=== PATIENT | female | born 1970 | race Caucasian/White ===

== ENCOUNTER 2024-02-02 15:51 | Outpatient (AMB) | payer OTHER, SELFPAY ==
--- NOTE | 2024-02-02 15:52 | AM.OFFWIN_ITS ---
Intake Vital Signs 02/02/24 15:58 Height 5 ft 5 in Weight 201 lb BMI 33.4 BP 116/80 Blood Pressure Location Lt brachial Position Sitting Pulse 85 Pulse Source Pulse Oximeter Temp 98.1 F Temp Source Oral Pulse Oximetry (%) 98 Oxygen Delivery Method Room Air Intake Visit Reasons: EP-sore throat, ear ache, headaches Intake Note: pt c/o sore throat, ear ache, headaches, stuffy nose . Started last week Patient Tobacco Use Status: Never used Tobacco Allergies No Known Allergies Allergy (Verified 02/02/24 15:53) Do you need a note to return to daycare/school/sports/work: No HPI HPI Comments History of Present Illness Details Patient is a 53-year-old female complaining of 9 days of a cough, sore throat, bilateral ear aches, headaches, stuffy nose. 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 She denies any nausea, vomiting, diarrhea, fevers or shortness of breath. She denies any history of asthma or COPD. She has been taking Sudafed without much relief. [facility] Social History Patient Tobacco Use Status: Never used Tobacco Review of Systems Const All systems reviewed & are unremarkable except as noted in HPI and below Physical Exam Vital Signs: BMI result Body Mass Index 33.4 Const General: cooperative, healthy appearing, comfortable and no acute distress Orientation/consciousness: patient oriented x3 Limitations: no limitations HEENT Head: Yes normal to inspection Ears: hearing grossly normal bilaterally, external ears normal and TM's normal bilaterally General nose exam: Normal external nose present, Normal nares present and No nasal discharge present Face and sinus: Yes normal facial exam and Yes sinuses nontender Mouth: Normal oral and palatal mucosa present and moist mucous membranes Throat: Yes tonsils normal, Yes uvula midline and Yes posterior oropharynx abnormal (Erythema) Eyes General: appearance normal, both eyes and all related structures Neck Neck: Yes normal visual inspection Resp Effort & Inspection: normal respiratory effort, able to speak in complete sentences, Actively coughing, no respiratory distress, not tachypneic, no tripod positioning and no use of accessory muscles Auscultation: clear to auscultation bilaterally Cardio Rate: regular rate Rhythm: regular rhythm Heart sounds: normal S1 and S2 Skin General skin exam: no rashes or lesions noted Neuro General: patient oriented x3 Extrem General: Yes normal to inspection and Yes no clubbing, cyanosis or edema Results AMB Rapid Strep AMB Rapid Strep Positive Last Edit by Cristian Belcher CMA on 02/02/24 16:11 Assessment & Plan Assessment & Plan (1) Strep pharyngitis: Code(s): J02.0 - Streptococcal pharyngitis Plan: Rapid strep in office was positive, sent prescription to pharmacy. Sent flu and COVID RSV as well. Recommended taking the amoxicillin and using [id number] medications for symptomatic relief. Plan See above Orders: Orders SARS-CoV2/FLU/RSV Today J06.9 - Acute upper respiratory infection, unspecified AMB Rapid Strep Screen Today Z13.9 - Encounter for screening, unspecified Medications: New amoxicillin 500 mg PO BID 20 tabs 0RF Coding Level of Care Code New Pt Level 3 (39006) Diagnoses Strep pharyngitis J02.0
[2024-02-02 15:58] VITALS: BP 116/80; PULSE 85; TEMP 36.7; O2SAT 98; BMI 33.4
== END 2024-02-02 16:30 | disposition home or self-care (01) ==
PROVIDERS: Visit Provider Physician Assistant
DX: J02.0 Streptococcal pharyngitis (principal)
CPT/HCPCS: 87880; 99203

== ENCOUNTER 2024-02-02 16:08 | Outpatient (REF) | payer OTHER, SELFPAY ==
[2024-02-03 14:13] LABS: Influenza A PCR NEGATIVE (Negative); Influenza B PCR NEGATIVE (Negative); Resp Syncy Virus RNA Qual PCR NEGATIVE (Negative); SARS COV2 PCR INHOUSE NEGATIVE (Negative)
== END 2024-02-02 16:09 | disposition home or self-care (01) ==
LOC: HO.LAB 16:08
PROVIDERS: Visit Provider Physician Assistant
DX: J06.9 Acute upper respiratory infection, unspecified (principal)
CPT/HCPCS: 0241U

== ENCOUNTER 2024-05-02 16:03 | Outpatient (AMB) | payer OTHER, SELFPAY ==
--- NOTE | 2024-05-02 16:07 | AM.OFFWIN_ITS ---
Intake Vital Signs 05/02/24 16:12 Weight 199 lb BP 122/90 H Blood Pressure Location Rt brachial Position Sitting Pulse 78 Pulse Source Pulse Oximeter Temp 98.5 F Temp Source Temporal Artery Scan Pulse Oximetry (%) 98 Oxygen Delivery Method Room Air Intake Visit Reasons: EP-ears ache, sore throat, stuffy nose Intake Note: Patient here for cough, bilat ear pain and congestion that has been present for about 1 week. Patient Tobacco Use Status: Never used Tobacco Allergies No Known Allergies Allergy (Verified 05/02/24 16:12) Do you need a note to return to daycare/school/sports/work: Yes HPI HPI Comments History of Present Illness Details This is a 53-year-old female with a past medical history of hypothyroidism, anxiety and depression presenting for evaluation of a sore throat, headache, ear pain and cough that has been evolving over the past 10 days. Patient reports subjective fevers and chills for which she has been taking Sudafed, DayQuil and Mucinex. 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 [facility] Social History Patient Tobacco Use Status: Never used Tobacco Review of Systems Const All systems reviewed & are unremarkable except as noted in HPI and below Reports chills and Reports fever(s) (subjective) Eyes Reports no additional complaints ENT Reports no additional complaints, Reports otalgia, Reports sinus pressure and Reports sore throat Card Reports no additional complaints and Denies dyspnea Resp Reports chest congestion, Reports cough and Denies dyspnea GI Reports no additional complaints Reports no additional complaints Musc Reports no additional complaints Skin/Breast Reports system reviewed and no additional complaints, except as documented Neuro Reports no additional complaints Psych Reports no additional complaints Endo Reports no additional complaints Aller/Immun Reports no additional complaints Physical Exam Vital Signs: Last Vital Signs Temp 98.5 F 05/02/24 16:12 Pulse 78 05/02/24 16:12 BP 122/90 H 05/02/24 16:12 Pulse Ox 98 05/02/24 16:12 Oxygen Delivery Method Room Air 05/02/24 16:12 Const General: cooperative, comfortable, no acute distress, well developed, alert, awake and tired appearing Nutritional Appearance: average body habitus Orientation/consciousness: patient oriented x3 Limitations: no limitations HEENT Head: Yes normal to inspection and Yes normocephalic Ears: hearing grossly normal bilaterally, external ears normal, TM's abnormal bilaterally (R. TM bulging with erythema, L. TM bulging with fluid level, no erythema) and EAC's normal General nose exam: Normal external nose present Face and sinus: Yes normal facial exam and Yes sinuses nontender Mouth: Normal oral and palatal mucosa present and moist mucous membranes Throat: Yes posterior oropharynx normal (There is no edema, erythema or exudates of the posterior oropharynx) Eyes General: appearance normal, both eyes and all related structures Neck Lymphatic: no lymphadenopathy noted Resp Effort & Inspection: normal respiratory effort, no audible wheezes, Actively coughing, no respiratory distress and no use of accessory muscles Auscultation: clear to auscultation bilaterally, no rhonchi, no wheezes and lung sounds not diminished Cardio Rate: regular rate Rhythm: regular rhythm Skin General skin exam: no rashes or lesions noted Neuro General: patient oriented x3 Psych Appearance: grossly normal Mental Status: mental status grossly normal Insight: Good insight present (Psych) Judgement: Good judgement present (Psych) Assessment & Plan Assessment & Plan (1) Acute upper respiratory infection: Comment: Patient is afebrile and is not hypoxic. Chest x-ray is deferred at this time. Code(s): J06.9 - Acute upper respiratory infection, unspecified Plan: Continue taking Mucinex with Tylenol or ibuprofen as needed and increase clear fluids daily. (2) Otitis media of right ear: Code(s): H66.91 - Otitis media, unspecified, right ear Qualifiers: Otitis media type: unspecified Qualified Code(s): H66.91 - Otitis media, unspecified, right ear Plan: Amoxicillin 500 mg t.i.d. x7 days. Medications: New amoxicillin 500 mg PO TID 21 caps 0RF Coding Level of Care Code Est Pt Level 3 (73923) Diagnoses Acute upper respiratory infection J06.9 Right otitis media, unspecified otitis media type H66.91 Otitis media type: unspecified Time Spent (min) 20
[2024-05-02 16:12] VITALS: BP 122/90; PULSE 78; TEMP 36.9; O2SAT 98
--- OUTSIDE RECORDS SUMMARY | 2024-05-03 22:26 | XMS_ITS ---
Author Organization [facility] Address [address] [place] [address] Care Team Providers Care Rubber Attacher Name Role Phone HAKEEMLISAGREGORYJUAN M Unavailable [phone] Allergies No Known Allergies Reason For Referral Reason PLEASE EVALUATE AND TREAT Diagnosis 1 Earache (H92.09) Referral Organization [facility] Referring Provider First Name BRITTANY Referring Provider Last Name MEREDITH Erwin Referring Provider Speciality Family Med icine Referred Provider Specialty Family Pract ice Referral Priority Routine Referral Appointment Date 03/12/2024 REASON FOR VISIT RN TO [facility] Prescription Request, Patient requesting service from promotional campaign [employer] Medications Medication SIG (Take, Route, Frequency, Duration) Notes Start Date End Date Status Fluticasone Propionate 50 MCG/ACT 2 spray in each nostril Nasally Once a day for 30 days 03/12/2024 Active buPROPion HCl ER (SR) 200 MG TAKE 1 TABLET BY MOUTH TWICE A DAY Oral for 90 Days Active Amoxicillin 500 MG TAKE 1 CAPSULE BY MOUTH TWICE A DAY Oral for 10 Days Not-Taking Levothyroxine Sodium 50 MCG TAKE 1 TABLET BY MOUTH EVERY DAY Oral for 90 Days Active Rosuvastatin Calcium 5 MG TAKE 1 TABLET BY MOUTH EVERY DAY Oral for 90 Days Active Azithromycin 250 MG 2 STAT then 1 a day Orally daily for 5 days 03/12/2024 Active Social History Tobacco Use: Social History Observation Description Date Details (start date - stop date) Never Smoker NA - NA Tobacco Control (Standard) Question Answer Notes Tobacco use: Nonsmoker Vital Signs Height 66 in 03/12/2024 Weight 180 lbs 03/12/2024 BMI 29.05 kg/m2 03/12/2024 Patient Reported Normal Bloo d PressurePatient Reported High Temperature Encounters Encounter Location Date Provider Diagnosis [facility] [address] [place] [address] 03/12/2024 BRITTANY RICHTER Earache H92.09 Assessments Encounter Date Diagnosis (ICD Code) Assessment Notes Treatment Notes Treatment Clinical Notes Section Notes 03/12/2024 Earache (ICD-10 - H92.09) TREATMENT PLAN Patient presents with symptoms concerning for a congestive or infective process in the ear. Details of tympanoscope evaluation not available given type of medical visit performed. Given the nature of ear symptoms, the etiology often remains broad and requires close examination for definitive diagnosis and treatment. Given the symptoms provided, decision has been made to provide empiric treatment to help reduce congestive or inflammatory process in the ear, but definitive diagnosis will need to be provided in-person. The history is limited to what is provided by the patient in this medical visit. 1. If the symptoms are deemed to meet criteria for infection (ie. drainage, redness, unilateral symptoms, hearing changes, vertigo symptoms, fullness, pain, history of infection, anatomical variations), we can provide empiric antibiotic treatment. Either antibiotic eardrops or oral antibiotics are options, but avoid taking both at the same time as one should be sufficient. If you do take antibiotics, highly consider in-person evaluation within the next week. 2. If the symptoms are related to a congestive process with concomitant nasal/sinus symptoms (drainage, fullness, pain) and/or allergy symptoms (sneezing, itchy eyes, bilateral ear fullness, runny nose, etc), the ideal treatment does not involve focused antibiotic treatment of the ear. The strategy is to reduce the inflammatory burden in the nasopharynx and sinuses. Use anti-allergy medications (zyrtec, jazmin, claritin, xyzal) or flonase 2 puffs per nose daily (if not allergic). We can also consider oral steroids if you meet criteria for steroids to reduce congestive/inflam matory burden in the head. PATIENT EDUCATION: OTITIS MEDIA Overview An ear infection may start with a cold and affect the middle ear (otitis media). It can hurt a lot. Most ear infections clear up on their own in a couple of days and do not need antibiotics. Also, antibiotics do not work against viruses, which may be the cause of your infection. Regular doses of pain relievers are the best way to reduce your fever and help you feel better. Follow-up care is a bhandari part of your treatment and safety. Be sure to make and go to all appointments, and call your doctor if you are having problems. It's also a good idea to know your test results and keep a list of the medicines you take. How can you care for yourself at home? Take pain medicines exactly as directed. If the doctor gave you a prescription medicine for pain, take it as prescribed. If you are not taking a prescription pain medicine, take an qday-eww-xlnuhrw medicine, such as acetaminophen (Tylenol), ibuprofen (Advil, Motrin), or naproxen (Aleve). Read and follow all instructions on the label. Do not take two or more pain medicines at the same time unless the doctor told you to. Many pain medicines have acetaminophen, which is Tylenol. Too much acetaminophen (Tylenol) can be harmful. Plan to take a full dose of pain reliever before bedtime. Getting enough sleep will help you get better. Try a warm, moist washcloth on the ear. It may help relieve pain. If your doctor prescribed antibiotics, take them as directed. Do not stop taking them just because you feel better. You need to take the full course of antibiotics. When should you call for help? Call your doctor now or seek immediate medical care if: You have new or increasing ear pain. You have new or increasing pus or blood draining from your ear. You have a fever with a stiff neck or a severe headache. Watch closely for changes in your health, and be sure to contact your doctor if: You have new or worse symptoms. You are not getting better after taking an antibiotic for 2 days. 03/12/2024 Other Follow the treatment plan as indicated by the provider. Take any medications as prescribed. If you have any questions about your prescription, ask the pharmacist. Call 911 anytime you think you may need emergency care. For example, call if:You have severe trouble breathing.You have a seizure.Call your doctor now or seek immediate medical care if:You have trouble breathing.You have a fever with a stiff neck or a severe headache.You have pain or pressure in your chest or belly.You have a fever or cough that returns after getting better.You feel very sleepy, dizzy, or confused.You are not urinating.You have severe muscle pain.You have severe weakness, or you are unsteady.You have medical conditions that are getting worse.Watch closely for changes in your health, and be sure to contact your doctor if:You do not get better as expected.You are having a problem with your medicine. You participated in a Fasttrack Rx request, considered an asynchronous visit where you provide your symptoms and medical history, and a treatment plan is formulated based on your submission. A treatment plan and patient education were provided based on your submission. If symptoms persist or worsen, you should seek in-person care or call 911 immediately for further evaluation. Plan Of Treatment Medication Medication Name Sig Start Date Stop Date Notes Fluticasone Propionate 50 MCG/ACT 2 spray in each nostril Nasally Once a day for 30 days 03/12/2024 Azithromycin 250 MG 2 STAT then 1 a day Orally daily for 5 days 03/12/2024 Treatment Notes Assessment Notes Earache TREATMENT PLAN Patient presents with symptoms concerning for a congestive or infective process in the ear. Details of tympanoscope evaluation not available given type of medical visit performed. Given the nature of ear symptoms, the etiology often remains broad and requires close examination for definitive diagnosis and treatment. Given the symptoms provided, decision has been made to provide empiric treatment to help reduce congestive or inflammatory process in the ear, but definitive diagnosis will need to be provided in-person. The history is limited to what is provided by the patient in this medical visit. 1. If the symptoms are deemed to meet criteria for infection (ie. drainage, redness, unilateral symptoms, hearing changes, vertigo symptoms, fullness, pain, history of infection, anatomical variations), we can provide empiric antibiotic treatment. Either antibiotic eardrops or oral antibiotics are options, but avoid taking both at the same time as one should be sufficient. If you do take antibiotics, highly consider in-person evaluation within the next week. 2. If the symptoms are related to a congestive process with concomitant nasal/sinus symptoms (drainage, fullness, pain) and/or allergy symptoms (sneezing, itchy eyes, bilateral ear fullness, runny nose, etc), the ideal treatment does not involve focused antibiotic treatment of the ear. The strategy is to reduce the inflammatory burden in the nasopharynx and sinuses. Use anti-allergy medications (zyrtec, jazmin, claritin, xyzal) or flonase 2 puffs per nose daily (if not allergic). We can also consider oral steroids if you meet criteria for steroids to reduce congestive/inflammatory burden in the head. PATIENT EDUCATION: OTITIS MEDIA Overview An ear infection may start with a cold and affect the middle ear (otitis media). It can hurt a lot. Most ear infections clear up on their own in a couple of days and do not need antibiotics. Also, antibiotics do not work against viruses, which may be the cause of your infection. Regular doses of pain relievers are the best way to reduce your fever and help you feel better. Follow-up care is a bhandari part of your treatment and safety. Be sure to make and go to all appointments, and call your doctor if you are having problems. It's also a good idea to know your test results and keep a list of the medicines you take. How can you care for yourself at home? Take pain medicines exactly as directed. If the doctor gave you a prescription medicine for pain, take it as prescribed. If you are not taking a prescription pain medicine, take an jwhv-dmw-qfvpode medicine, such as acetaminophen (Tylenol), ibuprofen (Advil, Motrin), or naproxen (Aleve). Read and follow all instructions on the label. Do not take two or more pain medicines at the same time unless the doctor told you to. Many pain medicines have acetaminophen, which is Tylenol. Too much acetaminophen (Tylenol) can be harmful. Plan to take a full dose of pain reliever before bedtime. Getting enough sleep will help you get better. Try a warm, moist washcloth on the ear. It may help relieve pain. If your doctor prescribed antibiotics, take them as directed. Do not stop taking them just because you feel better. You need to take the full course of antibiotics. When should you call for help? Call your doctor now or seek immediate medical care if: You have new or increasing ear pain. You have new or increasing pus or blood draining from your ear. You have a fever with a stiff neck or a severe headache. Watch closely for changes in your health, and be sure to contact your doctor if: You have new or worse symptoms. You are not getting better after taking an antibiotic for 2 days. Other Follow the treatment plan as indicated by the provider. Take any medications as prescribed. If you have any questions about your prescription, ask the pharmacist. Call 911 anytime you think you may need emergency care. For example, call if:You have severe trouble breathing.You have a seizure.Call your doctor now or seek immediate medical care if:You have trouble breathing.You have a fever with a stiff neck or a severe headache.You have pain or pressure in your chest or belly.You have a fever or cough that returns after getting better.You feel very sleepy, dizzy, or confused.You are not urinating.You have severe muscle pain.You have severe weakness, or you are unsteady.You have medical conditions that are getting worse.Watch closely for changes in your health, and be sure to contact your doctor if:You do not get better as expected.You are having a problem with your medicine. Referrals Referral Date Details 03/12/2024 03/12/2024, PLEASE E VALUATE AND TREAT Next Appt Details Follow Up: PCP, 2-3D, Reason : Progress Notes * KimberlyBillB:1970 ([age] yo F)Acc No.[id number]:03/12/2024 Patient:?Leanna BRICE Provider:?BRITTANY RICHTER MD :1970???Age:53 Y???Sex:Female D ate:03/12/2024 Phone: Address:[address] [place] [id number] Subjective: * Chief Complaints: * ???RN TO FA [facility] Pre scription RequestPatient requesting service from promotional campaign [employer] * HPI: ???TeleHealth Complaint History:?Reason for visit: 53 year-old female, not , presents with earache for a duration of 3 days. Medical History: Thyroid nodule. Medications: Levothyroxine Sodium 50cv Morning. Risk Factors: No emotional stress, no immunocompromised, no recent ear injury, no foreign body in ear, no swimming and no injury of head. * ROS:?All Other Systems:?Review of Systems (ROS)?See HPI for details.?The patient is also suffering from earache (severity moderate and not worsened by mastication), fever (101 ) (duration 1 days), headache (severity moderate, duration 2 days, location frontal region, bilateral, dull, clinical course intermittent, progression staying the same, not timing evening and not awakening from sleep), ear pressure sensation, stuffed-up nose and sputum production. The patient denies the following: ear discharge, difficulty tolerating loud noises, decreased hearing, chills, rash, sore throat, sneezing, nasal obstruction, nasal discharge, cough, facial pain, loss of sense of smell, vomiting, impaired vision, involuntary tears and muscle pain. * Medical History:? * Surgical History:?Denies Pas t Surgical History * Hospitalization/Major Diagno stic Procedure:?Denies Past Hospitalization * Family History:? Patient denies. * Social History:?Tobacco Use:?Tobacco Control (Standard)?Tobacco use:?Nonsmoker.?Drugs/Alcohol:?Do you drink alcohol?: No. * Medications:?TakingbuPROPion HCl ER (SR) 200 MG Tablet Extended Release 12 Hour TAKE 1 TABLET BY MOUTH TWICE A DAY Oral Levothyroxine Sodium 50 MCG Tablet TAKE 1 TABLET BY MOUTH EVERY DAY Oral Rosuvastatin Calcium 5 MG Tablet TAKE 1 TABLET BY MOUTH EVERY DAY Oral Taking buPROPion HCl ER (SR) 200 MG Tablet Extended Release 12 Hour TAKE 1 TABLET BY MOUTH TWICE A DAY Oral Taking Levothyroxine Sodium 50 MCG Tablet TAKE 1 TABLET BY MOUTH EVERY DAY Oral Taking Rosuvastatin Calcium 5 MG Tablet TAKE 1 TABLET BY MOUTH EVERY DAY Oral Not-TakingAmoxicillin 500 MG Capsule TAKE 1 CAPSULE BY MOUTH TWICE A DAY Oral Not-Taking Amoxicillin 500 MG Capsule TAKE 1 CAPSULE BY MOUTH TWICE A DAY Oral * Allergies:?N.K.D.A.no[Allerg ies Verified] Objective: * Vitals:?Ht: 66 in, Wt:180lbs , BMI:29.05Index. Patient Reported Normal Blood Pressure Patient Reported High Temperature. * Physical Examination:?Asynchronous visit, unable to assess. Assessment: * Assessment: 1.?Earache - H92.09 (Primary )??? Plan: * Treatment: 2.?Others? Notes: Follow the treatment plan as indicated by the provider. Take any medications as prescribed. If you have any questions about your prescription, ask the pharmacist. [id number] you think you may need emergency care. For example, call if:You have severe trouble breathing.You have a seizure.Call your doctor nowor seek immediate medical care if:You have trouble breathing.You have a fever with a stiff neck or a severe headache.You have pain or pressure in your chest or belly.You have a fever or cough that returns after getting better.You feel very sleepy, dizzy, or confused.You are not urinating.You have severe muscle pain.You have severe weakness, or you are unsteady.You have medical conditions that are getting worse.Watch closely for changes in your health, and be sure to contact your doctor if:You do not get better as expected.You are having a problem with your medicine.?? Clinical Notes:You participated in a Fasttrack Rx request, considered an asynchronous visit where you provide your symptoms and medical history, and a treatment plan is formulated based on your submission. A treatment plan and patient education were provided based on your submission. If symptoms persist or worsen, you should seek in-person care or call 911 immediately for further evaluation. ?? * Procedure Codes:?KAT PinkyUbersense ant / CC Processing [id number] Office Visit, Est Pt., Level 3, delivered asynchronous, Modifiers: GQ * Follow Up:?PCP, 2-3D * Billing Information: * Visit Code:? S9083 [facility] * Procedure Codes:? [employer]ly[employer]Shola WorkerBee Virtual Assistantst / CC Processing Fee. [id number] Office Visit, Est Pt., Level 3, delivered asynchronous. Modifiers: GQ * Sign off status: Completed true * Provider:?BRITTANY RICHTER MD Da te:?03/12/2024 Generated for Barbara linder/Michael/eTransmitting on:?05/03/2024 10:26 PM EST History and Physical Notes * Physical Examination Category Sub-Category Detail Notes Section Note s Asynchronous vi sit, unable to assess Consultation Request Notes Referral Date Referring Provider Referred Provider Not es 03/12/2024 BRITTANY RICHTER PLEAS E EVALUATE AND TREAT
--- OUTSIDE RECORDS SUMMARY | 2024-05-03 22:27 | XMS_ITS | Patient Health Record ---
Author Organization [facility] Address [address] [place] [address] Care Team Providers Care Cage Tender Name Role Phone MEREDITHYaimaBRITTANY Unavailable Allergies No Known Allergies Reason For Referral Reason PLEASE EVALUATE AND TREAT Diagnosis 1 Earache (H92.09) Referral Organization [facility] Referring Provider First Name BRITTANY Referring Provider Last Name HAKEEMMeenaTIMOTEO Erwin Referring Provider Speciality Family Med icine Referred Provider Specialty Family Pract ice Referral Priority Routine Referral Appointment Date 03/12/2024 Medications Medication SIG (Take, Route, Frequency, Duration) Notes Start Date End Date Status Azithromycin 250 MG 2 STAT then 1 a day Orally daily for 5 days 03/12/2024 Active Fluticasone Propionate 50 MCG/ACT 2 spray in [...] EVERY DAY Oral for 90 Days Active Social History Tobacco Use: Social History Observation Description Date Details (start date - stop date) Never Smoker NA - NA Tobacco Control (Standard) Question Answer Notes Tobacco use: Nonsmoker Vital Signs Height 66 in 03/12/2024 Patient Reported Normal Blood Pressure Patient Reported High Temperature Weight 180 lbs 03/12/2024 Patient Reported Normal Blood Pressure Patient Reported High Temperature BMI 29.05 kg/m2 03/12/2024 Patient Reported Normal Blood Pressure Patient Reported High Temperature Encounters Encounter Location Date Provider Diagnosis [facility] [address] [place] [address] 03/12/2024 BRITTANY RICHTER Earache H92.09 Assessments Encounter [...] taking a prescription pain medicine, take an xixz-rfh-tymmohy medicine, such as acetaminophen (Tylenol), ibuprofen (Advil, [...] immediately for further evaluation. Plan Of Treatment No Information Insurance Providers Payer Name Payer Address Payer Phone Subscriber Number Group Number Insured Name Patient Relationship to Insured Coverage Start Date [place]age [place] Date [id number] [employer] [address] [place] [phone] [id number] Leanna Brice Self - patient is the insured
== END 2024-05-02 16:37 | disposition home or self-care (01) ==
PROVIDERS: Visit Provider Physician Assistant
DX: J06.9 Acute upper respiratory infection, unspecified (principal); H66.91 Otitis media, unspecified, right ear

== ENCOUNTER → 2024-05-02 16:03 | Outpatient (BNVA) | payer OTHER, SELFPAY | PROVIDERS: Visit Provider Physician Assistant ==

== ENCOUNTER 2024-12-04 08:12 | Outpatient (AMB) | payer OTHER, SELFPAY ==
--- OUTSIDE RECORDS SUMMARY | 2024-12-04 08:15 | XMS_ITS | Data Portability ---
Author Organization [place] - [facility], [facility] Address [address] [place] [address] Assessment No assessment recorded. Plan of Treatment Reminders Order Date Submit Date Provider Last Modified By Organization Details Last Modified Time Details Appointments None recorded. Lab urinalysi s, dipstick 2022 023 [place] [facility], [address], [place], [address], 10:18:35 culture, urine 2022 023 [place] [facility], [address] [place] [address], [place], [address], 12:38:09 Referral None recorded. Procedures None recorded. Surgeries None recorded. Imaging None recorded. Medication Orders Macrobid 100 mg capsule 2022 023 [email or web address] [id number], [address] [facility], [place], [address], 09:50:00 Patient TargetsNo targets recorded. Patient Instructions Encounter Date Encounter Id Patient Instructions Last Modified By Organization Details Last Modified Time 07/12/2022 [id number] f/u with pcp in 2 days or immediately if symptoms worsen, ER if severe symptoms, chest pain, shortness of breath or if worse. [email or web address] Not available 07/12/2022 09:12:07 Reason for Referral None Reported. Results Created Date Observation Date Name Description Value Unit Range Abnormal Flag Note LastModifiedBy Organization Detail LastModifiedTime 07/12/19 23 07/18/2022 URINE CULTU RE, ROUTI NE urine culture, routine FINAL REPORT abnormal Not Available [facility] ([facility]) [address], [place], [address], 07/18/2022 12:37:07 07/12/19 23 07/18/2022 URINE CULTU RE, ROUTI NE result 1 ESCHER ICHIA COLI abnormal Cefaz osmani <=4 ug/mL Cefaz osmani with an JOSE DE JESUS <=16 predi cts susce ptibi lity to the oral agent s cefac candace, cefdi luis, cefpo doxim e, cefpr ozil, cefur oxime , cepha lexin , and lorac arbef when used for thera py of uncom plica elena urina ry tract infec tions due to E. coli, Klebs iella pneum oniae , and Prote us mirab ilis. Great er than 100,0 00 colon y formi ng units per mL Not Available [facility] ([facility]) [address], [place], [address], 07/18/2022 12:37:07 07/12/19 23 07/18/2022 URINE CULTU RE, ROUTI NE antimicrobia l susceptibili ty COMMEN T S = Susce ptibl e; I = Inter media te; R = Resis tant P = Posit manny; N = Negat manny MICS are expre ssed in micro grams per mL Antib iotic RSLT# 1 RSLT# 2 RSLT# 3 RSLT# 4 Amoxi cilli n/Cla vulan ic Acid S Ampic illin S Cefep bianca S Ceftr iaxon e S Cefur oxime S Cipro floxa caleb S Ertap enem S Genta micin S Imipe nem S Levof loxac in S Merop enem S Nitro furan toin S Piper acill in/Ta zobac rodriguez S Tetra cycli ne S Tobra mycin S Trime thopr im/Holcomb lfa S Not Available [facility] ([facility]) [address], [place], [address], 07/18/2022 12:37:07 07/12/19 23 07/12/2022 urina lysis , dipst ick Unknown Analyte Yellow Not Available [facility] [address], [place], [address], 07/12/2022 08:59:05 07/12/19 23 07/12/2022 urina lysis , dipst ick Unknown Analyte Clear Not Available 09_ [facility] [address] [place] [address] Rd [address], [place], [address], 07/12/2022 08:59:05 07/12/19 23 07/12/2022 urina lysis , dipst ick Unknown Analyte 250 mg/dL Not Available 09_ [facility] [address], [place], [address], 07/12/2022 08:59:05 07/12/19 23 07/12/2022 urina lysis , dipst ick Unknown Analyte Modera te Not Available 09_ [facility] [address], [place], [address], 07/12/2022 08:59:05 07/12/19 23 07/12/2022 urina lysis , dipst ick Unknown Analyte 15 mg/dL Not Available 09_ [facility] [address], [place], [address], 07/12/2022 08:59:05 07/12/19 23 07/12/2022 urina lysis , dipst ick Unknown Analyte 1.010 Not Available [facility] [address], [place], [address], 07/12/2022 08:59:05 07/12/19 23 07/12/2022 urina lysis , dipst ick Unknown Analyte Modera te Not Available [facility] [address], [place], [address], 07/12/2022 08:59:05 07/12/19 23 07/12/2022 urina lysis , dipst ick Unknown Analyte 8.0 Not Available [facility] [address], [place], [address], 07/12/2022 08:59:05 07/12/19 23 07/12/2022 urina lysis , dipst ick Unknown Analyte 300 mg/dL Not Available [facility] [address], [place], [address], 07/12/2022 08:59:05 07/12/19 23 07/12/2022 urina lysis , dipst ick Unknown Analyte >=8.0 E.U./d L Not Available [facility] [facility] [address], [place], [address], 07/12/2022 08:59:05 07/12/19 23 07/12/2022 urina lysis , dipst ick Unknown Analyte Positi ve Not Available [facility] [place] [facility] [address], [place], [address], 07/12/2022 08:59:05 07/12/19 23 07/12/2022 urina lysis , dipst ick Unknown Analyte Large Not Available [facility] [address], [place], [address], 07/12/2022 08:59:05 Result Notes None recorded. Problems Name Problem SNOMED Code Status Onset Date Resolution Date Notes Provider Name and Address Organization Details Recorded Time Hypothyroidism 14387525 Active 2022 SHIRA conley [place] - [facility] 08:58:44 Acute urinary tract infection 912250467 Active 2022 Leanna Ochoa , [address] [place], [place], [address] , [place] - [facility] 3 09:10:55 Problem Notes None recorded. Medical Equipment None Reported. Allergies No known drug allergies Medications Name Sig Start Date Stop Date Status Note LastModified by Organization Details LastModified Time Macrobid 100 mg capsule Take 1 capsule every 12 hours by oral route for 7 days. 023 active Not Available Not Available Not Avai lable Synthroid active Not Available Not Mary ilable Not Available Vitals Date Recorded Body height Body mass index (BMI) Body weight Respiratory rate Oxygen saturation Oxygen saturation in Arterial blood by Pulse oximetry Heart rate Body temperature Systolic And Diastolic Provider Name and Address Organization Details Last Updated DateTime 3 167.64 cm 29.1 kg/m2 74203.6 3 g 18 /min 98 % 98 % 76 /min 98.3 [degF] 106/62 mm[Hg] SHIRA ACUÑA [place] [employer] [facility] 08:59:27 Social History Question Answer Notes LastModified by [employer] Details LastModified Time Tobacco Smoking Status Never Smoker SHIRA conley [place] - [facility] 07/12/2022 08:58:52 Have You Had Direct Contact, Or Contact During Intimacy, With Monkeypox Rash, Scabs, Or Body Fluids From A Person With Monkeypox? No Information not available 07/12/2022 Have You Recently Traveled Abroad? No Information not available 07/12/2022 Sex: Unknown Functional Status Question Answer Note LastModified by [employer] Details LastModified Time Do you use any illicit or recreational drugs? No Information not available 07/12/2022 Do you or have you ever used any other forms of tobacco or nicotine? No Information not available 07/12/2022 Mental Status None recorded. Family History Nothing Reported. Medical History No medical history recorded. Gynecological HistoryNo gynecological history recorded. Obstetrics History GPAL:G 0 P 0 0 0 0 Past Encounters Encounter ID Performer Location Encounter Start Date Encounter Closed Date Diagnosis/Indication Diagnosis SNOMED-CT Code Diagnosis ICD10 Code Diagnosis Note [id number] [place] [facility] [address] [place] [address] 07/12/2022 08:26:30 07/12/2022 09:53:41 Dysuria 76280963 R30.0 Acute urin dian tract infection 915434129 N39.0 Health Concerns Section Related Observation LastModified by Organization Detai ls LastModified Time None Recorded Concern Status LastModified by Organization Details LastModified Time None Recorded Advance Directives Directive None Recorded Payers Insurance Date Sequence Insurance Name Policy Number Policy Ferris Covered Member ID Ferris Member ID Guarantor Name 07/12/2022 1 [place] Una [id number] 26 Leanna Wally Brice 07/12/2022 1 [place] Leannamaury Brice [id number] Leanna Wally Brice 07/12/2022 1 [place] Leslie Rangelisreal Brice [id number] Leanna Wally Brice Notes Date Note Type Note Provider Name and Address Organization Details Recorded Time 07/12/2022 text/html presents with dysuria, frequency, urgency, similar to previous uti. no fever, no flank pain, mild supra pubic pain. does not recall previous abx rx used [place] [employer] [place], [address], [place] - [facility] 07/12/2022 09:50:13 OBGyn Episode No OBEpisode recorded.
--- OUTSIDE RECORDS SUMMARY | 2024-12-04 08:15 | XMS_ITS | Clinical Summary ---
Author Organization [facility] Address [address] [place] [address] Phone Care Team Providers Care Returned Item Clerk Name Role Phone Physician, No Pcp Primary Care Provider Unavaila ble Allergies No known active allergies Medications levothyroxine (SYNTHROID, LEVOTHROID) 75 mcg tablet Take by mouth 1 (one) time each day before breakfast. Active Active Problems Problem Noted Date Diagnosed Date ASCUS with positive high risk HPV cervical 08/25 Assessment & Plan (08/25/2024 3:54 PM EDT): Patient will be scheduled to come back for colposcopy. Will review past pap records when received. Postmenopausal bleeding 08/02/2024 Assessment & Plan (08/25/2024 3:53 PM EDT): I counseled Leanna that we could either perform EMB, get an US here before an EMB, or have her get records and decide if she needs an EMB. She was open to having the EMB scheduled with her colpo and obtaining her records to bring in in the meantime. Assessment & Plan (08/02/2024 4:28 PM EDT): I counseled the patient that PMB can be secondary to precancer or cancer. This can be evaluated by US and/or endometrial biopsy. If the endometrial lining is 5 mm or greater, an endometrial biopsy is usually performed. If the endometrial lining is 4 mm or less, no biopsy needed unless bleeding continues. I recommended the patient sign MENDOZA and set up follow up visit to review imaging and discuss if EMB is necessary. Obesity 08/02/2024 Overview (08/02/2024): normal 24 hour cortisl\ol Depression 08/02/2024 Gastro-esophageal reflux 08/02/2024 Hypothyroidism 08/02/2024 Microscopic hematuria 08/02/2024 Overview (08/02/2024): neg cysto,cytology Negative CT abdomen and pelvis aside from mild splenomegaly seen 2004 referred ultrasound.cytology saw urology all ok Short SD-normal QRS complex syndrome 08/02/2024 Splenomegaly 08/02/2024 Overview (08/02/2024): Mild splenomegaly seen on CT June 20, 2014 Encounters Date Type Department Care Team Description 10/05/2024 1:30 PM EDT Procedure visit Obstetrics and Gynecology [address] [address] Marian Baker MD ASCUS with positive high risk HPV cervical (Primary Dx); Postmenopausal bleeding from Last 3 Months Surgical History Surgery Date Site/Laterality Comments THYROIDECTOMY, PARTIAL Medical History Medical History Date Comments Thyroid nodule Hypothyroid Family History Medical History Relation Name Comments Breast cancer Neg Hx Colon cancer Neg Hx Ovarian cancer Neg Hx Pancreatic cancer Neg Hx Prostate cancer Neg Hx Uterine cancer Neg Hx Social History Tobacco Use Types Packs/Day Years Used Date Smoking Tobacco: Never Smokeless Tobacco: Never Tobacco Cessation:Counseling Given: Not Answered Alcohol Use Standard Drinks/Week Comments Yes 0 (1 standard drink = 0.6 oz pur e alcohol) social Comments No Sex and Gender Information Value Date Recorded Sex Assigned at Not on file Legal Sex Female 11:38 AM EDT Gender Identity Not on file Sexual Orientation Not on file Obstetrics History Para Term AB IAB SAB Ectopic Multiple Livin g Live Births 3 3 3 0 0 0 0 0 0 3 0 Date Outcome GA Total Labor Labor/2nd/3rd Weight Sex Type Anes PTL Sierra A1 A5 Name Clin Term Vag-Spo nt Term Term M Last Filed Vital Signs Vital Sign Reading Time Taken Comments Blood Pressure 137/88 10/05/2024 1:36 PM EDT Pulse 77 10/05/2024 1:36 PM EDT Temperature - - Respiratory Rate 14 10/05/2024 1:36 PM EDT Oxygen Saturation - - Inhaled Oxygen Concentration - - Weight 90.5 kg (199 lb 9.6 oz) 10/05/2024 1:36 P M EDT Height 167.6 cm (5' 6 ) 08/25/2024 3:43 PM EDT Body Mass Index 32.22 08/25/2024 3:43 PM EDT Plan of Treatment Health Maintenance Due Date Last Done Comments Breast Cancer Screening 1970 Hepatitis B Vaccines (1 of 3 - 19+ 3-dose series) 1988 DTaP,Tdap,and Td Vaccines (2 - Td or Tdap) 05/11/2010 05/11/2000 Pneumococcal Vaccine: 50+ Years (1 of 1 - PCV) 12/20/2019 Zoster Vaccines (1 of 2) 12/20/2019 COVID-19 Vaccine (2023-2 5 season) 2024 Cholesterol Screening (Lipid Panel) 03/07/2024 Colorectal Cancer Screening: Colonoscopy 03/07/2024 Depression Screening 03/07/2024 HIV Screening 03/07/2024 Hepatitis C Screening 03/07/2024 Social Influencers of Health Screening 03/07/2024 Influenza Vaccine (#1) 2025 Cervical Cancer Screening: HPV 08/02/2029 0 08/02/2024, 08/02/2024 HIB Vaccines Aged Out No longer eligi ble based on patient's age to complete this topic HPV Vaccines Aged Out No longer eligi ble based on patient's age to complete this topic Hepatitis A Vaccines Aged Out No long er eligible based on patient's age to complete this topic IPV Vaccines Aged Out No longer eligi ble based on patient's age to complete this topic MMR Vaccines Aged Out No longer eligi ble based on patient's age to complete this topic Meningococcal ACWY Vaccine Aged Out N o longer eligible based on patient's age to complete this topic Meningococcal B Vaccine Aged Out No l onger eligible based on patient's age to complete this topic RSV Immunization Patients Under 20 months Aged Out No longer eligible b ased on patient's age to complete this topic Varicella Vaccines Aged Out No longer eligible based on patient's age to complete this topic Procedures Procedure Name Priority Date/Time Associated Diagnosis Comments TISSUE EXAM Routine 10/05/2024 2:21 PM EDT ASCUS with positive high risk HPV cervical Postmenopausal bleeding HPV WITH REFLEX GENOTYPE Routine 08/02/2024 4:05 PM EDT Screening for cervical cancer from Last 3 Months or Most Recently Relevant to Health Maintenance Results * Tissue exam (10/05/2024 2:21 PM EDT) Final Diagnosis A. Endometrial biopsy: Strips of endometrial surface epithelium No intact endometrial glands and stroma identified B. Endocervical curettings: Scant endocervical glandular epithelium with squamous metaplasia No squamous intraepithelial lesion or glandular neoplasm identified 10/09/2024 1:13 PM EDT [facility] Clinical Information ASCUS with positive high risk HPV cervical R87.610, R87.810 Postmenopausal bleeding N95.0 10/09/2024 1:13 PM EDT [facility] Gross Description A. Endometrium, EMB: Labeled Endo and further designated EMB on the lid. Received in formalin is a 0.3 cm aggregate of red-brown soft tissue fragments which is submitted in toto in a mesh bag in one cassette, multiple pieces, x 2. B. Endocervix, ECC: Labeled endocervix and further designated ECC on the lid. Received in formalin on a brush is a 0.2 cm aggregate of a transparent mucoid substance admixed with minute hernandez-white possible soft tissue fragments. The specimen is submitted in toto in a mesh bag in one cassette, multiple pieces, x 2. Please note: The tissue is minute and may not survive processing. PENNY 10/09/2024 1:13 PM EDT [facility] Disclaimer Unless otherwise specified, all tissue is 10% NB formalin fixed and paraffin embedded. 10/09/2024 1:13 PM T [facility] Tissue Endocervical structure / Unknown Non-blood Collection / Unknown 10/05/2024 2:21 PM EDT 10/05/2024 2:21 PM EDT Tissue specimen (specimen) Endocervical structure / Unknown 10/05/2024 2:21 PM EDT 10/05/2024 2:21 PM EDT Marian Baker MD LAB PATHOLOGY ORDERABLES Fi nal Result Performing Organization Address [facility]/ZIP Co de Phone Number [facility] [address] [place] [address], [place] [phone] * (ABNORMAL) HPV with reflex genotype (08/02/2024 4:05 PM EDT) HPV Positive( A) Negative LAB MICROBIOLOGY METHOD 08/04/2024 3:11 PM EDT [facility] Brushing/Spatula Cervix uteri structure / Unknown 08/02/2024 4:05 PM EDT 08/04/2024 8:00 AM EDT Marian Baker MD LAB MOLECULAR DIAGNOSTICS O RDERABLES Final Result Performing Organization Address [facility] Co de Phone Number [facility] [address] [place] [address], [place] [phone] from Last 3 Months or Most Recently Relevant to Health Maintenance Insurance [employer] Care Teams Returned Item Clerk Relationship Specialty Start Date End Date Physician, No Pcp PCP - General 07/31/24
--- OUTSIDE RECORDS SUMMARY | 2024-12-04 08:15 | XMS_ITS | Patient Health Record ---
Author Organization Yordy Torres MD [place]/ Endocrinology Address [address] [place] [address] Care Team Providers Care Teletype Adjuster Name Role Phone [facility] Primary Care Provider Unavailable Yordy Torres Unavailable [phone] Allergies No Known Allergies Reason For Referral No Information Medications Medication SIG (Take, Route, Fr equency, Duration) Notes Start Date End Date Status Unithroid 50 MCG 1 tablet in the morn ing on an empty stomach Orally Once a day for 90 days Active Wellbutrin SR 100 MG as directed Orally Active Unithroid 50 MCG 1 tablet in the morn ing on an empty stomach Orally Once a day for 90 days Active Social History Tobacco Use: Social History Observation Description Date Details (start date - stop date) Never Smoker NA - NA Tobacco Use/Smoking Question Answer Notes Are you a nonsmoker Alcohol Screen Question Answer Notes Did you have a drink containing alcohol in the p ast year? 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 Problem Non-toxic single thyroid nodule (652561101) Nontoxic single thyroid nodule (E04.1) Active confirmed Problem Non-toxic multinodular goiter (64626249) Nontoxic multinodular goiter (E04.2) Active confirmed Problem Non-toxic nodular goiter (897306277) Other specified nontoxic goiter (E04.8) Active confirmed Problem Non-toxic goiter (183490082) Nontoxic goiter, unspecified (E04.9) Active confirmed Problem Autoimmune thyroiditis (64145293) Autoimmune thyroiditis (E06.3) Active confirmed Problem 39768487 Other iatrogenic hypothyroidism (E03.2) Active confirmed Problem 37498052 Postsurgical hypothyroidism (E89.0) Active confirmed Problem 929809060 Other specified acquired hypothyroidism (E03.8) Active confirmed Plan Of Treatment Pending Test Test Name Order Date T4, FREE 09/10/2021 TSH, 3RD GENERATION 09/10/2021 T4, FREE 07/14/2021 TSH, 3RD GENERATION 07/14/2021 Future Test Test Name Order Date Ultrasound : Biopsy Thyroid 07/15/2020 T4, FREE 07/11/2022 TSH, 3RD GENERATION 07/11/2022 Insurance Providers Payer Name Payer Address Payer Phone Subscriber Number Group Number Insured Name Patient Relationship to Insured Coverage Start Date Coverage End Date [facility] [address] [place] [address] [id number] Leanna Brice Self - patient is the insured Medical (General) History Medical History History ICD Code multinodular goiter obesity depression COVID-19 hematuria Surgical History Surgery Date(Month/Year) hemithyroidectomy 10/2020 Hospitalization History Reason Date(Month/Year) thyroid surgery 10/2020
--- OUTSIDE RECORDS SUMMARY | 2024-12-04 08:15 | XMS_ITS | Patient Health Record ---
Author Organization [facility] Address [address] [place] [address] Care Team Providers Care Mold Tooler Name Role Phone MEREDITHYaimaBRITTANY Unavailable [phone] Allergies No Known Allergies Reason For Referral Reason PLEASE EVALUATE AND TREAT Diagnosis 1 Earache (H92.09) Referral Organization [facility] Referring Provider First Name BRITTANY Referring [...] Temperature Encounters Encounter Location Date Provider Diagnosis [facility] [address] [place] [address] 03/12/2024 BRITTANY RICHTER Earache H92.09 Assessments Encounter [...] taking a prescription pain medicine, take an hakm-vxd-uxrgvua medicine, such as acetaminophen (Tylenol), ibuprofen (Advil, [...] Coverage Start Date Coverage End Date [id number] [employer] [facility] [address] [place] [id number] Leanna rBice Self - patient is the insured
[2024-12-04 08:26] VITALS: BP 124/96; PULSE 80; TEMP 36.7; O2SAT 98; BMI 33.9
--- NOTE | 2024-12-04 08:26 | MHC.OFFWIV ---
Intake Vital Signs 12/04/24 08:26 Height 5 ft 5 in Weight 203 lb 8 oz BMI 33.9 BP 124/96 H Blood Pressure Location Rt brachial Position Sitting Pulse 80 Pulse Source Pulse Oximeter Temp 98.0 F Temp Source Oral Pulse Oximetry (%) 98 Oxygen Delivery Method Room Air Intake Visit Reasons: EP UTI? Intake Note: Patient present with frequency and urgency times 6 days Patient Tobacco Use Status: Never used Tobacco [employer] Required: No Is last menstrual period known: No Post menopausal: Yes Patient : No Allergies No Known Allergies Allergy (Verified 12/04/24 08:36) Do you need a note to return to daycare/school/sports/work: Yes HPI HPI Comments History of Present Illness Details 53 y/o Female patient who presents to the walk in clinic with c/o Urinary frequency and Urgency for 6 days. Reports Symptoms got worse yesterday. Reports lower abdominal cramping and burning, but denies Fevers, chills, nausea or vomiting. [facility] Medical History (Updated 12/04/24 @ 08:54 by Sierra Rao NP) Cystitis Social History Patient Tobacco Use Status: Never used Tobacco Patient : No Review of Systems Const All systems reviewed & are unremarkable except as noted in HPI and below Physical Exam Vital Signs: Last Vital Signs Temp 98.0 F 12/04/24 08:26 Pulse 80 12/04/24 08:26 BP 124/96 H 12/04/24 08:26 Pulse Ox 98 12/04/24 08:26 Oxygen Delivery Method Room Air 12/04/24 08:26 BMI result Body Mass Index 33.9 Const General: no acute distress; No comfortable Nutritional Appearance: obese Orientation/consciousness: patient oriented x3 Resp Effort & Inspection: normal respiratory effort Cardio Heart sounds: S1 normal heart sound present and S2 normal heart sound present GI Inspection: Yes Abdominal panniculus present Palpation (GI): Soft to palpation, not firm, Tenderness to palpation present (GI) suprapubicly, no guarding and not rigid General: Yes no CVA tenderness Back/Spine/Pelvis Back: no CVA tenderness Neuro General: patient oriented x3, gait normal and moves all extremities Psych Speech and movement: Normal speech and movement present Results AMB Urinalysis, Automated UA Leukoctes 125 Elisha/uL Last Edit by Susan Nolen MA on 12/04/24 08:44 UA Nitrite Positive Last Edit by Susan Nolen MA on 12/04/24 08:44 UA Urobilinogen 4 mg/dL Last Edit by Susan Nolen MA on 12/04/24 08:44 UA Protein 15 mg/dL Last Edit by Susan Nolen MA on 12/04/24 08:44 UA pH 5.5 Last Edit by Susan Nolen MA on 12/04/24 08:44 UA Blood 0 Joe/uL Last Edit by Susan Nolen MA on 12/04/24 08:44 UA Specific [place] 1.020 Last Edit by Susan Nolen MA on 12/04/24 08:44 UA Ketone Positive Last Edit by Susan Nolen MA on 12/04/24 08:44 UA Bilirubin 4 mg/dL Last Edit by Susan Nolen MA on 12/04/24 08:44 UA Glucose 0 mg/dL Last Edit by Susan Nolen MA on 12/04/24 08:44 Results Reviewed Results Reviewed: Laboratory Last Values Urine pH (Auto) 5.5 12/04/24 08:41 Specific [place] (Auto) 1.020 12/04/24 08:41 Urine Protein (Auto) 15 mg/dL 12/04/24 08:41 Glucose (UA)(Auto) 0 mg/dL 12/04/24 08:41 Urine Ketones (Auto) Positive 12/04/24 08:41 Urine Blood (Auto) 0 Joe/uL 12/04/24 08:41 Urine Nitrite (Auto) Positive 12/04/24 08:41 Urine Bilirubin (Auto) 4 mg/dL 12/04/24 08:41 Urine Urobilinogen (Auto) 4 mg/dL 12/04/24 08:41 Leukocyte Esterase (Auto) 125 Elisha/uL 12/04/24 08:41 Assessment & Plan Assessment & Plan (1) Cystitis: Code(s): N30.90 - Cystitis, unspecified without hematuria Plan: Urinalysis positive for LEK and NIT Ordered Urine culture Ordered Cefuroxime for 7 days. Orders: Orders AMB Urinalysis Automated Today Z13.9 - Encounter for screening, unspecified Urine Culture Today N30.90 - Cystitis, unspecified without hematuria Medications: New cefuroxime axetil 500 mg PO BID 14 tabs 0RF 7 days N30.90 - Cystitis, unspecified without hematuria Coding Level of Care Code Est Pt Level 4 (36393) Diagnoses Cystitis N30.90 Time Spent (min) 20
== END 2024-12-04 08:55 | disposition home or self-care (01) ==
PROVIDERS: Visit Provider Nurse Practitioner Family
DX: Z13.9 Encounter for screening, unspecified (principal); N30.90 Cystitis, unspecified without hematuria

== ENCOUNTER 2024-12-04 08:12 | Outpatient (REF) | payer OTHER, SELFPAY | END 2024-12-04 08:13 | disposition home or self-care (01) | LOC: HO.LAB 08:12 | PROVIDERS: Visit Provider Nurse Practitioner Family | DX: N30.90 Cystitis, unspecified without hematuria (principal) | CPT/HCPCS: 81003; 87086 ==

== ENCOUNTER 2025-04-06 15:42 | Outpatient (REF) | payer OTHER, SELFPAY ==
[2025-04-07 14:33] LABS: Resp Syncy Virus RNA Qual PCR NEGATIVE (Negative); SARS COV2 PCR INHOUSE POSITIVE (Negative)
== END 2025-04-06 15:43 | disposition home or self-care (01) ==
LOC: HO.LAB 15:42
PROVIDERS: Visit Provider Physician Assistant
DX: R09.89 Other specified symptoms and signs involving the circulatory and respiratory systems (principal); J06.9 Acute upper respiratory infection, unspecified
CPT/HCPCS: 87637

== ENCOUNTER 2025-04-06 15:42 | Outpatient (AMB) | payer OTHER, SELFPAY ==
--- OUTSIDE RECORDS SUMMARY | 2019-03-22 19:00 | XMS_ITS | Continuity of Care Document ---
Author Organization [facility] Address [address] [facility] [address] [place] [address] Phone Care Team Providers Care Tobacco Packing Machine Operator Name Role Phone Tu Mccormack Unavailable Unavailable Advance Directives Directive Yes / No Effective Date File Name No Information Encounters Encounter Description Practice Location Reason(s) For Visit Diagnoses Date Provider Providers Copied on Encounter Tu Mccormack MD PA, [address] [place] [address] [address], [place], [place], [id number], tel:[phone] Tu OSMAN Pain in right hand Ksenia aMe. [address] [facility], [address], [place], [address], [place]. tel:[phone] Family History Family Member Type Diagnosis Age At Onset No Information Payers Payer name Insurance type Covered alliance party ID Authoriza tion(s) No Information Social History Type Description Quantity Date Captured Comments Sex Female Smoking Status No Information Chief Complaint And Reason For Visit No Information Reason For Referral Reason For Referral No Information History Of Present Illness Encounter Date Complaint History Of Prese nt Illness No Information Functional Status Date Functional Assessmen t No Information Instructions Date Instruction Additional Infor mation No Information Assessments Type Assessment Date No Information Patient Care Teams Name Effective Dates (start - stop) Status Members No Information
--- OUTSIDE RECORDS SUMMARY | 2019-03-22 19:00 | XMS_ITS | Continuity of Care Document ---
Author Organization [facility] Address [address] [facility] [address] [place] [address] Phone Care Team Providers Care Senior Ios Developer Name Role Phone Tu Mccormack Unavailable Unavailable Advance Directives Directive Yes / No Effective Date File Name No Information Encounters Encounter Description Practice Location Reason(s) For Visit Diagnoses Date Provider Providers Copied on Encounter Tu Mccormack MD PA, [address] [place] [address] [address], [place], [place], [id number], tel:[phone] Tu OSMAN Pain in right hand Ksenia Mae. [address] [facility], [address], [place], [address], [place]. tel:[phone] Family History Family Member Type Diagnosis Age At Onset No Information Payers Payer name Insurance type Covered libertarian ID Authoriza tion(s) No Information Social History [...]
--- NOTE | 2025-04-06 15:58 | AM.OFFWIN_ITS ---
Intake Vital Signs 04/06/25 16:03 Height 5 ft 5 in Weight 207 lb BMI 34.4 BP 120/80 Blood Pressure Location Lt brachial Position Sitting Pulse 77 Pulse Source Pulse Oximeter Temp 98.1 F Temp Source Oral Pulse Oximetry (%) 95 Oxygen Delivery Method Room Air Intake Visit Reasons: EP-sore throat, sinus congestion, rt ear pain Intake Note: EP complains of earache, sore throat and headache for four days. Patient Tobacco Use Status: Never used Tobacco Allergies No Known Allergies Allergy (Verified 04/06/25 16:11) Do you need a note to return to daycare/school/sports/work: No HPI HPI Comments History of Present Illness Details History - The patient is a 54-year-old female pr esenting with symptoms of a sore throat and ear pain. - The sore throat and ear pain began ashlie roximately five days ago, with the patient noting the right ear as more painful. - The patient denies any shortness of br eath or wheezing but reports chills at night without fever. - The patient has a history of recurrent ear infections and streptococcal pharyngitis, typically experiencing these conditions annually. - The patient has been taking Sudafed da abby and uses ibuprofen and Tylenol for symptom relief. 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 Review of Systems - General: Reports chills at night, jordan es fever. - Respiratory: Denies shortness of breat h or wheezing. - ENT: Reports sore throat and right ear pain, denies sinus pain. All systems reviewed and are unremarkable except as noted in HPI Physical Exam General: Cooperative, healthy appearing, comfortable and no acute distress Orientation/consciousness: Patient oriented x3 Limitations: No limitations Head: Normal to inspection Ears: Hearing grossly normal bilaterally, external ears normal, EAC's normal bilaterally and TM's normal bilaterally Nose: Normal external nose present, Normal nares present and No nasal discharge present Face and sinus: Normal facial exam and sinuses nontender Mouth: Normal oral and palatal mucosa present and moist mucous membranes Throat: Tonsils normal, no exudates, uvula midline, posterior oropharynx erythema Eyes: Appearance normal, both eyes and all related structures Neck: Normal visual inspection, full ROM Respiratory: Clear to auscultation bilaterally. Normal respiratory effort, able to speak in complete sentences, actively coughing, no respiratory distress, not tachypneic, no tripod positioning and no use of accessory muscles Cardiovascular: Regular rate and rhythm. Normal S1 and S2 Skin: No rashes or lesions noted Neuro: Patient oriented x3 Extremities: Normal to inspection and Yes no clubbing, cyanosis or edema [facility] Medical History (Updated 04/06/25 @ 16:29 by Brenda Jones PA-C) Cystitis Social History Patient Tobacco Use Status: Never used Tobacco Physical Exam Vital Signs: Last Vital Signs Temp 98.1 F 04/06/25 16:03 Pulse 77 04/06/25 16:03 BP 120/80 04/06/25 16:03 Pulse Ox 95 04/06/25 16:03 Oxygen Delivery Method Room Air 04/06/25 16:03 BMI result Body Mass Index 34.4 Assessment & Plan Assessment & Plan (1) Acute upper respiratory infection: Code(s): J06.9 - Acute upper respiratory infection, unspecified Plan: Plan Patient was informed and verbally consented to the use of an ambient scribe for clinic note documentation during this visit. Viral Upper Respiratory Infection - VSS, pt well appearing and PE unremarkable. - Plan includes supportive care with continued use of Sudafed, ibuprofen, and Tylenol as needed. - Advised rest and hydration, with a recommendation to take a couple of days off work if possible. - COVID-19, flu, and RSV tests were conducted to rule out other infections. - Recommended symptomatic relief with hot tea and honey for sore throat. Orders: Orders SARS-CoV2/FLU/RSV Today R09.89 - Other specified symptoms and signs involving the circulatory and respiratory systems Coding Level of Care Code New Pt Level 3 (29697) Diagnoses Acute upper respiratory infection J06.9
[2025-04-06 16:03] VITALS: BP 120/80; PULSE 77; TEMP 36.7; O2SAT 95; BMI 34.4
--- OUTSIDE RECORDS SUMMARY | 2025-04-07 00:46 | XMS_ITS | Clinical Summary ---
Author Organization [facility] Address [address] [place] [address] Phone Care Team Providers Care Neuro Intensivist Physician Name Role Phone Physician, Pcp Unknown Primary Care Provider Chyna vailable Allergies No known active allergies Medications levothyroxine [...] referred ultrasound.cytology saw urology all ok Short VT-normal QRS complex syndrome 08/02/2024 Splenomegaly 08/02/2024 Overview (08/02/2024): Mild splenomegaly seen on CT June 20, 2014 Surgical History Surgery Date Site/Laterality Comments THYROIDECTOMY, [...] Births 3 3 3 0 0 0 3 0 Date Outcome GA Total Labor Labor/2nd/3rd Weight Sex Type Anes PTL Sierra A1 A5 Name Clin Term Vag-Spo nt Term Term M Last Filed Vital Signs Vital Sign Reading Time Taken Comments Blood Pressure 128/94 12/17/2024 9:01 PM EDT Pulse 76 12/17/2024 9:01 PM EDT Temperature 36.8 C (98.2 F) 12/17/2024 9:01 PM EDT Respiratory Rate 18 12/17/2024 9:01 PM EDT Oxygen Saturation 95% 12/17/2024 9:01 PM EDT Inhaled Oxygen Concentration - - Weight 86.2 kg (190 lb) 12/17/2024 5:19 PM EDT Height 167.6 cm (5' 6 ) 12/17/2024 5:19 PM EDT Body Mass Index 30.67 12/17/2024 5:19 PM EDT Plan of Treatment Health Maintenance Due Date Last Done Comments Breast Cancer Screening 1970 Colorectal Cancer Screening: Colonoscopy 1970 Hepatitis B Vaccines (1 of 3 - 19+ 3-dose series) 1988 DTaP,Tdap,and Td Vaccines (2 - Td or Tdap) 05/11/2010 05/11/2000 Pneumococcal Vaccine: 50+ Years (1 of 1 - PCV) 12/20/2019 Zoster Vaccines (1 of 2) 12/20/2019 Cholesterol Screening (Lipid Panel) 03/07/2024 HIV Screening 03/07/2024 Hepatitis C Screening 03/07/2024 Social Influencers of Health Screening 03/07/2024 Depression Screening 05/24/2024 COVID-19 Vaccine (1 - 2024-2 6 season) 2025 Influenza Vaccine (#1) 2025 Cervical Cancer Screening: HPV 08/02/2029 0 08/02/2024, 08/02/2024 RSV Immunization Adult Patients (1 - 1-dose 75+ series) 2044 HIB Vaccines Aged Out No longer eligi [...] Procedure Name Priority Date/Time Associated Diagnosis Comments HPV WITH REFLEX GENOTYPE Routine 08/02/2024 4:05 PM EDT Screening for cervical cancer from Last 3 Months or Most Recently Relevant to Health Maintenance Results * (ABNORMAL) HPV with reflex genotype (08/02/2024 4:05 PM EDT) HPV Positive( A) Negative LAB MICROBIOLOGY METHOD 08/04/2024 3:11 PM EDT [facility] Brushing/Spatula Cervix uteri structure / Unknown 08/02/2024 4:05 PM EDT 08/04/2024 8:00 AM EDT us Marian Baker MD LAB MOLECULAR DIAGNOSTICS O RDERABLES Final Result [facility] ([facility] [address] [place] [address], from Last 3 Months or Most Recently Relevant to Health Maintenance Insurance [employer] Care Teams Neuro Intensivist Physician Relationship Specialty Start Date End Date Physician, Pcp Unknown PCP - General 12/17/24
== END 2025-04-06 16:33 | disposition home or self-care (01) ==
PROVIDERS: Visit Provider Physician Assistant
DX: J06.9 Acute upper respiratory infection, unspecified (principal)